=== PATIENT | male | born 1965 | race Caucasian/White ===

== ENCOUNTER 2017-04-27 15:04 | Day surgery (SDC) | payer OTHER, MEDICAID ==
[2017-04-27] MEDS ORDERED: LIDOCAINE 2% (SDV) 5 ML INJ (15:20)
[2017-04-27] MEDS ORDERED: PROPOFOL 40 ML (15:20)
[2017-04-27] MEDS ORDERED: MIDAZOLAM 1 MG/ML 2 ML INJ ×2 (15:49→15:59)
[2017-04-27] MEDS ORDERED: PHENYLephrine (100 MCG/ML) 5ML SYG (16:14)
[2017-04-27] MEDS ORDERED: PROPOFOL 20 ML (16:22)
== END 2017-04-27 17:40 | disposition home or self-care (01) ==
LOC: GIL 15:04
DX: Z12.11 Encounter for screening for malignant neoplasm of colon (principal); K56.699 Other intestinal obstruction unspecified as to partial versus complete obstruction; K64.8 Other hemorrhoids; I69.354 Hemiplegia and hemiparesis following cerebral infarction affecting left non-dominant side
CPT/HCPCS: 45378